=== PATIENT | female | born 1995 | race African-American/Black ===

== ENCOUNTER 2024-01-09 13:01 | Emergency (ER) | payer SELFPAY ==
[2024-01-09 13:33] LABS: Bilirubin Neg (Negative); Blood, Urine Negative (Negative); Glucose, Urine (Dipstick) Normal (Negative); Ketone, Urine 5 mg/dL (Negative); Leukocyte 25 (Negative); Nitrite Negative (Negative); Protein, Urine (Dipstick) Negative (Neg-Trace); Specific Gravity, Urine 1.015 (1.005-1.030); Urobilinogen Normal mg/dL (Less than 2)
[2024-01-09 13:35] LABS: Clarity Hazy (Clear)
[2024-01-09 13:36] LABS: Pregnancy Test - Urine (BHCG) Negative (Negative); Pregu Control Background? CLEAR/WHITE (CLR/WHITE); Pregu Control Bar Appear? YES (CONTROL BAR); Specific Gravity 1.015 (1.002-1.036)
[2024-01-09 14:00] LABS: CAUTI Indications for Culture Pelvic or flank pain; RBC/HPF 0-3 HPF (0-3); Transitional Epithelial 0-3 HPF (None Seen)
[2024-01-09 14:01] LABS: Bacteria/HPF 2+ HPF (None Seen); Mucous/LPF 1+ LPF (<2+)
[2024-01-09 14:02] LABS: Urine Culture Reflex No No
[2024-01-09 14:03] LABS: Epithelial Cast 0-3 LPF (None Seen)
== END 2024-01-09 16:34 | disposition home or self-care (01) ==
LOC: CSHERS 13:01
DX: N39.0 Urinary tract infection, site not specified (principal); N83.201 Unspecified ovarian cyst, right side; N83.8 Other noninflammatory disorders of ovary, fallopian tube and broad ligament
CPT/HCPCS: 74177; 76856; 81001; 81025

== ENCOUNTER 2024-05-11 00:23 | Emergency (ER) | payer SELFPAY ==
[2024-05-11 01:31] LABS: Bilirubin Neg (Negative); Blood, Urine 250 (Negative); Glucose, Urine (Dipstick) Normal (Negative); Ketone, Urine Negative (Negative); Leukocyte 500 (Negative); Nitrite Positive (Negative); Protein, Urine (Dipstick) 100 mg/dl (Neg-Trace); Urobilinogen Normal mg/dL (Less than 2)
[2024-05-11 01:37] LABS: Clarity Cloudy (Clear); Pregnancy Test - Urine (BHCG) Negative (Negative)
[2024-05-11 01:38] LABS: Pregu Control Background? CLEAR/WHITE (CLR/WHITE); Pregu Control Bar Appear? YES (CONTROL BAR)
[2024-05-11] MEDS ORDERED: Cephalexin 250 MG CAP ONE (01:43)
[2024-05-11 01:44] LABS: CAUTI Indications for Culture Pelvic or flank pain; RBC/HPF 21-50 HPF (0-3); WBC/HPF Greater than 50 HPF (0-3)
[2024-05-11 01:45] LABS: Bacteria/HPF 4+ HPF (None Seen)
[2024-05-11 01:46] LABS: Urine Culture Reflex Yes Yes
== END 2024-05-11 01:50 | disposition home or self-care (01) ==
LOC: CSHERS 00:23
DX: N39.0 Urinary tract infection, site not specified (principal)
CPT/HCPCS: 81001; 81025; 87077; 87086; 87186; 99283

== ENCOUNTER 2025-02-20 21:56 | Emergency (ER) | payer SELFPAY | END 2025-02-20 22:34 | LOC: CSHERS 21:56 | DX: N76.0 Acute vaginitis (principal) | CPT/HCPCS: 87480; 87510; 87660; 99283 ==